=== PATIENT | female | born 1970 | race Caucasian/White ===

== ENCOUNTER 2018-06-12 17:37 | Emergency (ER) | payer OTHER, SELFPAY ==
[2018-06-12 17:38] VITALS: BP 123/78; PULSE 68; RESP 14; TEMP 36.2; O2SAT 97; BMI 21.0
--- NOTE | 2018-06-12 17:41 | EKG12_ITS ---
Test Reason : CP Blood Pressure : / mmHG Vent. Rate : 069 BPM Atrial Rate : 069 BPM P-R Int : 124 ms QRS Dur : 072 ms QT Int : 376 ms P-R-T Axes : 043 057 063 degrees QTc Int : 402 ms Normal sinus rhythm with sinus arrhythmia Normal ECG Confirmed by SONJA ZACARIAS, JARAD ([id number]), staff editor KASHMIR MANRIQUE ([id number]) on 06/16/2018 10:39:59 AM Referred By: TL Confirmed By:JARAD CASILLAS MD
--- NOTE | 2018-06-12 18:44 | ED.RN ---
NO OLD EKGS IN MUSE
[2018-06-12 19:42] VITALS: BP 146/72; PULSE 71; RESP 16; O2SAT 99
--- NOTE | 2018-06-12 20:10 | CT_ITS ---
STUDY: CTA CHEST REASON FOR EXAM: Female, 48 years old. Left-sided chest pain RADIATION DOSAGE (If Supplied By Facility): CTDIvol = ( 5.22 ) mGy, DLP = ( 200.25 ) mGycm TECHNIQUE: The examination was performed with the intravenous administration of 100 ml of Isovue 370 contrast material. Post-processing of the angiographic images was performed, with multiplanar reformation and 3D reconstruction. Individualized dose optimization techniques were used for this CT. COMPARISON: None. FINDINGS: Normal enhancement of the main pulmonary artery and right and left pulmonary arteries. Normal enhancement of the bilateral peripheral pulmonary arteries. There is no demonstrated pulmonary embolism. Normal thoracic aorta and visualized great vessels. There is no demonstrated aortic dissection. Normal heart and pericardium. Normal mediastinum. Normal hilar regions. Small subpleural bulla of the upper lung zones bilaterally. Mild bronchial thickening bilateral lower lobes with posterior lower lobe atelectatic changes without other broad consolidation or pleural effusion. Normal chest wall structures. Normal osseous structures. Normal visualized upper abdomen. CT/CTA Chest W/WO Contrast IMPRESSION: Negative for pulmonary embolus. Normal thoracic aorta. Normal cardiac size without coronary calcifications are pericardial effusion. Small bilateral subpleural bulla of the upper lung zones bilaterally. Bronchial thickening of the bilateral lower lobes with posterior lower lobe atelectatic changes without other consolidation or pleural effusion. Electronically Signed: Vivian Pham MD at 21:43 EST , Service support ,
--- NOTE | 2018-06-12 20:14 | ED.DCSUM_ITS ---
- ER Visit Summary Date of Service: 06/12/18 Chief Complaint: Chest pain History of Present Illness: The patient is a 48 F persistent left-sided chest pain for the last 10 days. Pain radiates to the back. Worse with deep breaths and exertion. No cough. Saw her PCP 7 days ago outpatient chest x-ray negative symptoms worsening. No recent travel, surgeries, or immobilizations. No history of PE or DVT. On medicines only for depression. No history of gastric ulcers or kidney injury. Took ibuprofen a couple times this past week. None today. No fever, chills, sweats. Reports later that symptoms did chart after lifting her child. She was placed on a 5-day course of prednisone by PCP after evaluation no improvement. Physical Examination: General: Alert and oriented ?3, no acute distress HEENT: Normocephalic, atraumatic. Moist mucosa membranes Neck: supple, nontender. Cardiovascular: Regular rate and rhythm, no murmurs. No rash on chest wall. Respiratory: Normal breath sounds, symmetric, no distress Back: There is tenderness left paraspinal T7 T6 region rotated side bending left and extended. Abdomen: Soft, nontender, nondistended Extremities: Nontender, no edema, pulses intact ?4 Neuro: no focal neurological deficits. Test Results: EKG sinus rate of 69, no ST or T wave changes. White count 15, hemoglobin 13. Test 3.6. Creatinine 0.72. Troponin less than 0.015. CTA chest: No acute process. Emergency Department Course and Treatment: Patient nontoxic vitals stable. Persistent symptoms for 10 days chest x-ray reported outpatient negative. Pain with deep breath. Moderate risk Wells criteria for potential PE. Workup initiated. Labs cardiac enzymes CTA chest was negative. Patient given Toradol with moderate improvement, however states symptoms are this they are with movement. She does have somatic dysfunction thoracic spine. Verbal consent with patient for HVLA performed standing position with improved symptoms. Discussed continue Motrin at home. Follow-up with her PCP. Treatment Plan: [] Disposition: Discharge Impression: 1. Atypical chest pain 2. Somatic dysfunction thoracic spine status post HVLA This note was generated with [employer] dictation software. It may contain incorrect words, spelling, and punctuation that were not noted in review of the chart prior to signing ED Disposition - Plan for ED Patient: Disposition: Home or Assisted Living Diagnosis: Atypical chest pain, Somatic dysfunction of spine, thoracic Instructions: ED Chest Pain Atypical Unkn Cause, ED Sprain Thoracic Spine Referrals: Hailey Matta NP-C [Primary Care Provider] - 3-5 Days
[2018-06-12] MEDS: Ketorolac 30 MG/ML Syringe IV (20:21)
[2018-06-12 20:34] LABS: Absolute Lymphocyte Count 3.63 X10^3/ul (0.83-4.51); Absolute Neutrophil Count 10.2 X10^3/uL (2.0-7.7); Basophil# 0.02 X10^3/uL; Basophil% 0.1 % (0-1); Eosinophil# 0.24 X10^3/uL; Eosinophils% 1.6 % (0-5); Hematocrit 41.6 % (37-47); Hemoglobin 13.5 g/dl (12.0-15.0); Lymphocyte # 3.63 X10^3/ul (4.0); Lymphocyte % 24.3 % (19-41); Mean Corp Hgb Conc 32.5 g/gl (32-36); Mean Corpuscular Hgb 30.4 pg (27.0-32.0); Mean Corpuscular Volume 93.7 fL (81-99); Monocyte# 0.82 X10^3/uL; Monocyte% 5.5 % (0-10); Neutrophil # 10.16 X10^3/uL (2.7-7.7); Platelet Count 391 K/mm3 (150-450); RBC Distribution Width CV 12.6 % (11.6-14.6); RBC Distribution Width SD 42.7 fl (35.1-43.9); Red Blood Count 4.44 M/mm3 (4.2-5.4)
[2018-06-12 20:35] LABS: POSITIVE COUNT NO; POSITIVE DIFFERENTIAL NO; POSITIVE MORPHOLOGY NO
[2018-06-12 20:44] LABS: International Normalized Ratio 0.9; Prothrombin Time (Protime)PT. 11.9 SECONDS (11.7-14.9)
[2018-06-12 20:45] LABS: Partial Thromboplast Time 31.1 Seconds (24.1-36.2)
[2018-06-12 20:52] LABS: Anion Gap 7 (5-15); BUN 11 mg/dL (7-18); BUN/Creat Ratio 15.3 RATIO (10-20); Calcium,Total 8.4 mg/dL (8.5-10.1); Chloride 107 mmol/L (98-107); Creatinine, Serum 0.72 mg/dL (0.55-1.02); EST Glomerular Filtration Rate 92 mL/min (>60); Est Glom Filt Rate - Afr Amer 111 mL/min (>60); Estimated Creatinine Clearance 75.58 ml/min; Glucose 88 mg/dL (74-106); Potassium 3.6 mmol/L (3.5-5.1); Sodium Level 140 mmol/L (136-145)
[2018-06-12 21:00] VITALS: BP 127/77; PULSE 67; RESP 17; O2SAT 96
[2018-06-12 22:36] VITALS: PULSE 64; RESP 18
== END 2018-06-12 22:39 | disposition home or self-care (01) ==
PROVIDERS: Emergency Provider Emergency Medicine; Family Provider Nurse Practitioner Family; PCP Nurse Practitioner Family
DX: R07.89 Other chest pain (principal); M99.02 Segmental and somatic dysfunction of thoracic region; F32.9 Major depressive disorder, single episode, unspecified; Z72.0 Tobacco use
CPT/HCPCS: 71275; 80048; 84484; 85025; 85610; 85730; 93005; 96374; 99284; Q9967; A4216